=== PATIENT | female | born 1995 | race African-American/Black ===

== ENCOUNTER 2022-07-09 12:48 | Inpatient (IN) | payer MEDICAID ==
[~2022-07-09] VITALS: Ht 170.2 cm; Wt 126.1 kg
[2022-07-09] MEDS ORDERED: OXYTOCIN 10 UNITS/ML 1ML ONE (13:04)
[2022-07-09] MEDS ORDERED: OXYTOCIN 30 UNITS/500ML NS PMX 500 ML IV SCH (14:00)
[2022-07-09] MEDS ORDERED: MISOPROSTOL 100MCG TABLET VG SCH (14:00)
[2022-07-09] MEDS ORDERED: LIDOCAINE HCL 1% 20ML VIAL (Pyxis) INJ INFIL SCH (14:00)
[2022-07-09] MEDS ORDERED: CARBOPROST TROMETHAMINE 250 MCG/ML AMPUL IM PRN (14:00)
[2022-07-09] MEDS ORDERED: NALOXONE HCL 0.4 MG/ML 1ML VIAL IM PRN (14:00)
[2022-07-09] MEDS ORDERED: METHYLERGONOVINE MALEATE 0.2 MG/ML IM PRN (14:00)
[2022-07-09] MEDS ORDERED: MISOPROSTOL 100MCG TABLET VG PRN ×2 (14:15→19:00)
[2022-07-09] MEDS ORDERED: PENICILLIN G POTASSIUM 5 MMU in DEXT 5% WATER 100 ML IV NR (15:30)
[2022-07-09 15:45] LABS: BASOPHILS % 0.6 % (0.0-2.0); EOSINOPHILS % 0.5 % (0.0-5.0); HEMATOCRIT. 26.1 % (36.0-48.0); HEMOGLOBIN. 7.9 g/dL (12.0-16.0); LYMPHOCYTES % 19.8 % (20.0-50.0); MEAN CORPUSCULAR HEMOGLOBIN 18.3 pg (28.0-32.0); MEAN CORPUSCULAR VOLUME 60.6 fL (81.0-99.0); MEAN PLATELET VOLUME 7.7 fl (7.4-10.4); MONOCYTES % 5.3 % (2.0-8.0); NEUTROPHILS % 73.8 % (40.0-76.0); PLATELET 465 x1000/uL (130-400); RED BLOOD CELL COUNT 4.31 mill/uL (4.2-5.4); RED CELL DISTRIBUTION WIDTH 18.2 % (11.6-14.6)
[2022-07-09 15:48] LABS: CLARITY URINE CLEAR (CLEAR); COLOR URINE YELLOW (YELLOW); KETONES URINE NEGATIVE (NEGATIVE); LEUKOCYTE ESTERASE URINE 3+ (NEGATIVE); NITRITE URINE NEGATIVE (NEGATIVE); OCCULT BLOOD URINE NEGATIVE (NEGATIVE); PH URINE 7.5 (4.5-8.0); PROTEIN URINE NEGATIVE (NEGATIVE); SPECIFIC GRAVITY URINE 1.011 (1.005-1.030)
[2022-07-09 15:59] LABS: INR 0.9; PARTIAL THROMBOPLASTIN TIME 24.8 sec (23.4-31.0); PROTHROMBIN TIME 10.1 sec (9.6-11.0)
[2022-07-09 16:11] LABS: *AMPHETAMINES SCREEN URINE NEGATIVE (NEGATIVE); *BARBITURATES SCREEN URINE NEGATIVE (NEGATIVE); *BENZODIAZEPINES SCREEN URINE NEGATIVE (NEGATIVE); *COCAINE SCREEN URINE NEGATIVE (NEGATIVE); CANNABINOID URINE SCREEN NEGATIVE (NEGATIVE); METHADONE URINE SCREEN NEGATIVE (NEGATIVE); OPIATES URINE SCREEN NEGATIVE (NEGATIVE); PHENCYCLIDINE URINE SCREEN NEGATIVE (NEGATIVE)
[2022-07-09 16:36] LABS: PLATELET ESTIMATE SLIGHTLY INCREASED
[2022-07-09 17:23] LABS: HEPATITIS B SURFACE ANTIGEN NEGATIVE
[2022-07-09] MEDS ORDERED: BETAMETHASONE ACET/BETAMET 30 MG/5 ML VIAL IM NR (18:00)
[2022-07-09] MEDS: LACTATED RINGERS 1,000 ML IV SCH (19:57)
[2022-07-09] MEDS ORDERED: ROPIVACAINE HCL/PF EPIDURAL 200 ML EPI SCH (20:00)
[2022-07-09] MEDS ORDERED: PENICILLIN G POTASSIUM 2.5 MMU in DEXTROSE 5% WATER 50 ML IV SCH (20:00)
[2022-07-09] MEDS: BUTORPHANOL TARTRATE 2 MG/ML VIAL IV PRN ×2 (20:24→22:52)
[2022-07-10] MEDS: LACTATED RINGERS 1,000 ML IV SCH (01:03)
[2022-07-10] MEDS ORDERED: BENZOCAINE/LANOLIN/ALOE VERA SPRAY TOP PRN (01:30)
[2022-07-10] MEDS ORDERED: IBUPROFEN 400MG TABLET PO PRN (01:30)
[2022-07-10] MEDS ORDERED: RHO(D) IMMUNE GLOBULIN 300 MCG/SYR IM PRN (01:30)
[2022-07-10 04:00] VITALS: BP 112/58
[2022-07-10] MEDS ORDERED: LIDOCAINE HCL 2%/EPINEPHRINE 1:100,000 20 ML VIAL INFIL ONE (04:00)
[2022-07-10] MEDS: IBUPROFEN 800MG TABLET PO PRN ×3 (04:50→22:27)
[2022-07-10 08:00] VITALS: BP 100/59
[2022-07-10] MEDS: PRENATAL VIT/FE FUMARATE/FA TABLET PO SCH (09:24)
[2022-07-10 16:20] VITALS: BP 101/47
[2022-07-10 20:25] VITALS: BP 113/73
[2022-07-11 06:00] VITALS: BP 117/65
[2022-07-11 07:08] LABS: BASOPHILS % 1.2 % (0.0-2.0); EOSINOPHILS % 0.6 % (0.0-5.0); HEMATOCRIT. 27.3 % (36.0-48.0); HEMOGLOBIN. 8.2 g/dL (12.0-16.0); LYMPHOCYTES % 30.9 % (20.0-50.0); MEAN CORPUSCULAR HEMOGLOBIN 18.4 pg (28.0-32.0); MEAN PLATELET VOLUME 8.3 fl (7.4-10.4); MONOCYTES % 5.9 % (2.0-8.0); NEUTROPHILS % 61.4 % (40.0-76.0); PLATELET 422 x1000/uL (130-400); RED BLOOD CELL COUNT 4.48 mill/uL (4.2-5.4); RED CELL DISTRIBUTION WIDTH 18.1 % (11.6-14.6)
[2022-07-11] MEDS: PRENATAL VIT/FE FUMARATE/FA TABLET PO SCH (08:44)
[2022-07-11] MEDS: IBUPROFEN 800MG TABLET PO PRN ×2 (08:44→20:44)
[2022-07-11] MEDS: FERROUS SULFATE 325MG TABLET PO SCH ×3 (08:44→17:30)
[2022-07-11 14:00] VITALS: BP 119/58
[2022-07-11 20:00] VITALS: BP 108/60
[2022-07-12 03:30] VITALS: BP 100/52
[2022-07-12 08:00] VITALS: BP 109/57
[2022-07-12] MEDS: IBUPROFEN 800MG TABLET PO PRN (08:03)
[2022-07-12] MEDS: FERROUS SULFATE 325MG TABLET PO SCH (08:04)
[2022-07-12] MEDS: PRENATAL VIT/FE FUMARATE/FA TABLET PO SCH (08:04)
== END 2022-07-12 12:35 | disposition home or self-care (01) | DRG 560 ==
LOC: 8 EST LDRP 12:48 → OBSVTOIN 12:48 → 8EST 07-10 05:45
PROVIDERS: ADMIT Obstetrics & Gynecology; ATTEND Obstetrics & Gynecology
PROC: 10E0XZZ Delivery of Products of Conception, External Approach (ICD-10-PCS; principal; 2022-07-10)
DX: O48.0 Post-term pregnancy (principal); Z37.0 Single live birth; O75.3 Other infection during labor; D62 Acute posthemorrhagic anemia; Z3A.40 40 weeks gestation of pregnancy; N30.90 Cystitis, unspecified without hematuria; O99.02 Anemia complicating childbirth
CPT/HCPCS: 36415; 76805; 80305; 81003; 85025; 86592; 86703; 86762; 86850; 86900; 87340; 99281; J0595; J2540; J2795; J3490; J7060; J7120; A4315; J2590